=== PATIENT | female | born 1990 | race African-American/Black ===

== ENCOUNTER 2020-11-06 05:39 | Emergency (ER) | payer OTHER ==
--- NOTE | 2020-11-06 06:04 | ED Physician Documentation ---
PD HPI NVD - Stated complaint Stated Complaint: VOMIT BLOOD - Chief complaint Chief Complaint: Abd Pain - History obtained from History obtained from: Patient - History of Present Illness Timing - onset: How many hours ago (few hours ago, onset of nausea, fatigue, feverish, malaise. Had vomiting with heaving several times with phlegm initially, then noted some epigastric pain and vomited red blood with small clots. No further emesis after.) Timing - duration: Hours Timing - details: Abrupt onset, Still present Associated symptoms: Fever (99 temp this morning), Abdominal pain, Hematemesis (bright red with clot). No: Near syncope / syncope, Loss of appetite Contributing factors: Alcohol use (several times weekly.), Other (Had 2nd COVID vaccine yesterday, with very sore arm today, and general fatigue feeling too.). No: Sick contact, Anticoagulated Similar symptoms before: Has not had sx before Review of Systems Constitutional: reports: Fever (this morning), Chills Nose: denies: Rhinorrhea / runny nose, Congestion Throat: denies: Sore throat Respiratory: denies: Cough GI: denies: Abdominal Swelling, Diarrhea, Bloody / black stool : denies: Dysuria, Frequency Neurologic: denies: Generalized weakness, Near syncope PD PAST MEDICAL HISTORY - Past Medical History Past Medical History: Yes Cardiovascular: None Respiratory: None GI: None - Past Surgical History Past Surgical History: No - Present Medications Home Medications: Ambulatory Orders Medication Instructions Recorded Confirmed Famotidine [Pepcid] 20 mg PO DAILY #20 tablet 11/06/20 Ondansetron Odt [Zofran] 4 mg TL Q6H PRN #10 tablet 11/06/20 - Allergies Allergies/Adverse Reactions: Allergies Allergy/AdvReac Type Severity Reaction Status Date / Time No Known Drug Allergies Allergy Verified 11/06/20 06:00 - Living Situation Living Situation: reports: With spouse/s.o. Living Arrangement: reports: At home - Social History Does the pt smoke?: No Smoking Status: Never smoker Does the pt drink ETOH?: Yes ETOH Use: Wine Does the pt have substance abuse?: No - Family History Family history: denies: CAD - Immunizations Immunizations are current?: Yes PD ED PE NORMAL - Vitals Vital signs reviewed: Yes - General General: Alert and oriented X 3, No acute distress, Well developed/nourished - HEENT HEENT: PERRL (nonicteric), Pharynx benign - Neck Neck: Supple, no meningeal sign, No adenopathy - Cardiac Cardiac: RRR, No murmur - Respiratory Respiratory: Clear bilaterally - Abdomen Abdomen: Soft, No organomegaly, Other (mild tender epigastric without guarding. ) - Derm Derm: Normal color, Warm and dry - Neuro Neuro: Alert and oriented X 3, No motor deficit, Normal speech Results - Vitals Vitals: Vital Signs - 24 hr 11/06/20 11/06/20 11/06/20 05:41 05:53 08:10 Temperature 36.6 C 36.6 C Heart Rate 93 93 110 H Respiratory 18 18 20 Rate Blood Pressure 115/69 115/69 98/76 O2 Saturation 100 100 99 Oxygen O2 Source Room air - Labs Labs: Laboratory Tests 11/06/20 11/06/20 11/06/20 06:15 06:48 07:00 WBC 11.3 H RBC 3.83 L Hgb 13.0 Hct 36.2 L MCV 94.5 MCH 33.9 H MCHC 35.9 RDW 12.1 Plt Count 288 MPV 11.0 H Neut # (Auto) 9.7 H Lymph # (Auto) 0.8 L [place] # (Auto) 0.6 Eos # (Auto) 0.0 Baso # (Auto) 0.1 Absolute Nucleated RBC 0.00 Nucleated RBC % 0.0 Sodium 134 L Potassium Chloride 95 L Carbon Dioxide 25 Anion Gap 14.0 H BUN 17 Creatinine 0.6 Estimated GFR (MDRD) 144 Glucose 105 H Calcium 9.2 Total Bilirubin 0.7 AST 34 ALT 33 Alkaline Phosphatase 35 L Total Protein 7.7 Albumin 4.4 Globulin 3.3 Albumin/Globulin Ratio 1.3 Lipase 24 Urine Color YELLOW Urine Clarity CLEAR Urine pH 7.5 Ur Specific [place] 1.020 Urine Protein NEGATIVE Urine Glucose (UA) NEGATIVE Urine Ketones TRACE Urine Occult Blood NEGATIVE Urine Nitrite NEGATIVE Urine Bilirubin NEGATIVE Urine Urobilinogen 0.2 (NORMAL) Ur Leukocyte Esterase NEGATIVE Ur Microscopic Review NOT INDICATED Urine Culture Comments NOT INDICATED Urine HCG, Qual NEGATIVE Ethyl Alcohol 171.5 PD MEDICAL DECISION MAKING - ED course Complexity details: considered differential (likely nausea, fatigue, vomiting, low fever related to COVID 2nd vaccine yesterday. Heaved with phlegm several times then had pain and hematemesis bright red blood, so sounding more like Prema-Matthew tear. No nausea now. Does have h/o heavy drinking several times weekly so will check LFTs. ), d/w patient Departure - Departure Disposition: 01 Home, Self Care Clinical Impression: Status post administration of all doses of COVID-19 vaccine series Vomiting Qualifiers: Vomiting type: hematemesis Nausea presence: with nausea Qualified Code(s): K92.0 - Hematemesis Condition: Stable Record reviewed to determine appropriate education?: Yes Instructions: ED Bleed UGI Stable Follow-Up: [facility] [Provider Group] Prescriptions: Famotidine [Pepcid] 20 mg PO DAILY #20 tablet Ondansetron Odt [Zofran] 4 mg TL Q6H PRN #10 tablet PRN Reason: Nausea / Vomiting Comments: Your symptoms are most likely side effects of the vaccine from yesterday. Hopefully the nausea in general illness will just be today and/or tomorrow. Off work tonight if still not feeling well. 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 Antacids such as Maalox or Mylanta to help with stomach irritation. Tylenol if needed for pains. The bleeding with vomiting is likely a small blood vessel tear or the lining of the stomach. Typically this will heal and not have any further bleeding. You may notice some dark stool later today or tomorrow from blood going that direction. It would make sense to use an acid reducing medicine such as famotidine daily for a couple of weeks to allow for a friendlier environment in the stomach for healing. Avoid irritants such as excess alcohol, NSAIDs, spicy food etc. Forms: Activity restrictions Discharge Date/Time: 11/06/20 08:11
[2020-11-06] MEDS ORDERED: LIDOCAINE VISCOUS 2% 15 ML UDC MM STA (06:35)
[2020-11-06] MEDS ORDERED: MAG HYDROX/AL HYDROX/SIMETH 30 ML UDC PO STA (06:35)
[2020-11-06] MEDS ORDERED: ACETAMINOPHEN 325 MG TABLET PO STA (06:35)
[2020-11-06] MEDS ORDERED: FAMOTIDINE 20 MG TABLET PO STA (06:35)
[2020-11-06 06:46] LABS: BILIRUBIN,URINE NEGATIVE (NEGATIVE); GLUCOSE, URINE (UA) NEGATIVE (NEGATIVE); KETONES,URINE (UA) TRACE mg/dL (NEGATIVE); LEUKOCYTE ESTERASE, URINE NEGATIVE (NEGATIVE); NITRITE,URINE NEGATIVE (NEGATIVE); OCCULT BLOOD,URINE NEGATIVE (NEGATIVE); PH,URINE 7.5 PH (5.0-7.5); PROTEIN,URINE NEGATIVE (NEGATIVE); UROBILINOGEN,URINE 0.2 (NORMAL) E.U./dL (NORMAL)
[2020-11-06 06:54] LABS: CLARITY,URINE CLEAR (CLEAR); HCG UR QUAL NEGATIVE
[2020-11-06 07:00] LABS: BASOPHILS # (AUTO) 0.1 10^3/uL (0.0-0.1); BASOPHILS % (AUTO) 0.6 %; EOSINOPHILS % (AUTO) 0.1 %; HCT - HEMATOCRIT 36.2 % (37.0-47.0); LYMPHOCYTES # (AUTO) 0.8 10^3/uL (1.5-3.5); LYMPHOCYTES % (AUTO) 7.3 %; MEAN CORPUSCULAR HEMOGLOBIN 33.9 pg (27.0-31.0); MEAN CORPUSCULAR HGB CONC 35.9 g/dL (32.0-36.0); MEAN CORPUSCULAR VOLUME 94.5 fL (81.0-99.0); MONOCYTES # (AUTO) 0.6 10^3/uL (0.0-1.0); MONOCYTES % (AUTO) 5.6 %; NEUTROPHILS # (AUTO) 9.7 10^3/uL (1.5-6.6); NEUTROPHILS % (AUTO) 85.9 %; PLT - PLATELET COUNT 288 10^3/uL (130-450); RED BLOOD COUNT 3.83 10^6/uL (4.20-5.40); RED CELL DISTRIBUTION WIDTH 12.1 % (12.0-15.0); WHITE BLOOD COUNT 11.3 x10^3/uL (4.8-10.8)
[2020-11-06 07:23] LABS: ALBUMIN 4.4 g/dL (3.2-5.5); ALBUMIN/GLOBULIN RATIO 1.3 (1.0-2.2); BILIRUBIN,TOTAL 0.7 mg/dL (0.2-1.0); CALCIUM 9.2 mg/dL (8.5-10.3); CREATININE 0.6 mg/dL (0.4-1.0); ETOH - ETHANOL 171.5 mg/dL; TOTAL PROTEIN 7.7 g/dL (6.7-8.2)
[2020-11-06 08:10] VITALS: BP 98/76
== END 2020-11-06 08:11 | disposition home or self-care (01) ==
LOC: ED 05:39
DX: K92.0 Hematemesis (principal); R10.13 Epigastric pain
CPT/HCPCS: 36415; 80053; 80320; 81003; 81025; 83690; 85025; 99283; A9270; 81001; 87086

== ENCOUNTER 2022-07-20 08:00 | Outpatient (CLI) | payer BC, OTHER | END 2022-07-20 08:15 | disposition home or self-care (01) | LOC: LAB.N 08:00 | PROVIDERS: ATTEND Registered Nurse | DX: Z11.1 Encounter for screening for respiratory tuberculosis (principal) | CPT/HCPCS: 81599; 86480 ==

== ENCOUNTER 2023-02-26 07:45 | Outpatient (CLI) | payer BC | END 2023-02-26 08:00 | disposition home or self-care (01) | LOC: LAB.N 07:45 | PROVIDERS: ATTEND Family Medicine | DX: Z11.1 Encounter for screening for respiratory tuberculosis (principal) | CPT/HCPCS: 81599; 86480 ==

== ENCOUNTER 2023-04-17 16:39 | Outpatient (CLI) | payer BC ==
[2023-04-17 17:45] LABS: BASOPHILS # (AUTO) 0.1 10^3/uL (0.0-0.1); BASOPHILS % (AUTO) 0.5 %; BILIRUBIN,URINE NEGATIVE (NEGATIVE); EOSINOPHILS # (AUTO) 0.1 10^3/uL (0.0-0.7); EOSINOPHILS % (AUTO) 0.6 %; GLUCOSE, URINE (UA) NEGATIVE (NEGATIVE); HCT - HEMATOCRIT 33.8 % (37.0-47.0); HGB - HEMOGLOBIN 11.3 g/dL (12.0-16.0); KETONES,URINE (UA) NEGATIVE (NEGATIVE); LEUKOCYTE ESTERASE, URINE NEGATIVE (NEGATIVE); LYMPHOCYTES % (AUTO) 32.4 %; MEAN CORPUSCULAR HEMOGLOBIN 31.4 pg (27.0-31.0); MEAN CORPUSCULAR HGB CONC 33.4 g/dL (32.0-36.0); MEAN CORPUSCULAR VOLUME 93.9 fL (81.0-99.0); MEAN PLATELET VOLUME 10.1 fL (7.9-10.8); MONOCYTES # (AUTO) 0.9 10^3/uL (0.0-1.0); MONOCYTES % (AUTO) 9.4 %; NEUTROPHILS # (AUTO) 5.3 10^3/uL (1.5-6.6); NEUTROPHILS % (AUTO) 56.8 %; NITRITE,URINE NEGATIVE (NEGATIVE); OCCULT BLOOD,URINE NEGATIVE (NEGATIVE); PLT - PLATELET COUNT 263 10^3/uL (130-450); PROTEIN,URINE NEGATIVE (NEGATIVE); RED CELL DISTRIBUTION WIDTH 11.9 % (12.0-15.0); UROBILINOGEN,URINE 0.2 (NORMAL) E.U./dL (NORMAL); WHITE BLOOD COUNT 9.3 x10^3/uL (4.8-10.8)
[2023-04-17 17:46] LABS: CLARITY,URINE CLEAR (CLEAR)
[2023-04-17 17:56] LABS: BACTERIA,URINE None Seen /HPF (None Seen); RBC,URINE None Seen /HPF (0-5); SQUAMOUS EPITHELIAL CELL,UR RARE Squamous (<= Few); WBC,URINE 0-3 /HPF (0-5)
[2023-04-17 18:32] LABS: HCG UR QUAL NEGATIVE
--- NOTE | 2023-04-18 08:43 | Ultrasound Report ---
PROCEDURE: Pelvic w/Transvaginal INDICATIONS: PELVIC PAIN, HISTORY OF OVARIAN CYST TECHNIQUE: Real-time scanning was performed of the pelvic organs, with image documentation. Additional endovagi nal scanning was necessary due to incomplete visualization of the adnexal and endometrial structures by transabdominal scanning. COMPARISON: None. FINDINGS: Uterus: Uterus measures 6.6 x 3 x 3.7 cm. Anteverted positioning. Endometrium measures 3 mm. IUD is 0 .5 cm the endometrial tip. Ovaries: Right ovary measures 34 cc. A suspected hemorrhagic cyst is seen measuring up to 3.7 x 3.1 c m. Color and spectral flows are present. The left ovary measures 8 cc. There is a dilated left fallop svetlana tube measuring up to 1.3 cm with internal debris. Color and spectral flows are present. Other: No pathologic free fluid. IMPRESSION: No evidence of torsion at this time. Enlarged right ovary with a probable hemorrhagic cyst up to 3.7 cm. Debris-containing left fluid-filled fallopian tube, possibly pyosalpinx or hematosalpinx. Conside r future imaging surveillance following clinical treatment. Agree with preliminary report given to Tana danielson by odd job laborer. Reviewed by: Bebo June MD on 04/18/2023 8:42 AM PST Approved by: Bebo June MD on 04/18/2023 8:42 AM PST Station ID: [id number]
== END 2023-04-17 16:40 | disposition home or self-care (01) ==
LOC: LAB 16:39
PROVIDERS: ATTEND Nurse Practitioner
DX: R10.2 Pelvic and perineal pain (principal); Z87.42 Personal history of other diseases of the female genital tract; N83.8 Other noninflammatory disorders of ovary, fallopian tube and broad ligament
CPT/HCPCS: 36415; 81001; 81025; 85025; 87086

== ENCOUNTER 2023-04-22 08:00 | Outpatient (CLI) | payer BC ==
[2023-04-22 20:16] LABS: CHLAMYDIA TRACHOMATIS DNA NEGATIVE (NEGATIVE); NEISSERIA GONORRHOEAE DNA NEGATIVE (NEGATIVE); TRICHOMONAS VAGINALIS DNA NEGATIVE (NEGATIVE)
== END 2023-04-22 23:59 | disposition home or self-care (01) ==
LOC: LAB.WC 08:00
PROVIDERS: ATTEND Obstetrics & Gynecology
DX: Z11.3 Encounter for screening for infections with a predominantly sexual mode of transmission (principal)
CPT/HCPCS: 87491; 87591; 87661